=== PATIENT | male | born 1990 | race Caucasian/White ===

== ENCOUNTER 2021-03-15 08:16 | Emergency (ER) | payer OTHER ==
[2021-03-15 09:16] LABS: BASOPHIL 0.2 % (0-2); EOSINOPHIL 0.3 % (0-5); HGB 15.4 g/dl (13.2-18.0); LYMPHOCYTE 5.3 % (15-48); MCH 29.4 pg (25.0-31.0); MCHC 32.8 g/dL (32.0-36.0); MCV 89.9 fL (78.0-100.0); MONOCYTE 6.6 % (0-12); MPV 10.2 fL (6.0-9.5); NEUTROPHIL 86.4 % (41-80); NRBC 0; PLT 263 K/uL (150-400); RBC 5.23 M/uL (4.70-6.00); RDW 12.5 % (11.5-14.0); WBC 27.3 K/uL (4.0-10.5)
[2021-03-15 10:05] LABS: ACETAMINOPHEN (TYLENOL) < 2.0 ug/mL (10.0-30.0); ALBUMIN 4.1 g/dL (3.4-5.0); ALKALINE PHOSHATASE 86 U/L (46-116); ALT 333 U/L (16-63); AST 297 U/L (15-37); BILIRUBIN - TOTAL 0.8 mg/dL (0.2-1.0); BUN 21 mg/dL (7-18); BUN/CREAT RATIO (CALC) 16.5 RATIO; CHLORIDE 102 mmol/L (98-107); CO2 (BICARBONATE) 28 mmol/L (21-32); CREATININE 1.27 mg/dL (0.67-1.17); GLOBULIN (CALCULATION) 3.9 g/dL
[2021-03-15 10:07] LABS: GLUCOSE 36 mg/dL (74-106)
[2021-03-15 11:14] LABS: BILIRUBIN NEGATIVE (NEGATIVE); BLOOD TRACE-INTACT Ery/uL (NEGATIVE); CLARITY CLEAR (CLEAR); COLOR YELLOW (YELLOW); GLUCOSE (U) 1+ mg/dL (NORMAL); LEUKOCYTES NEGATIVE Leu/uL (NEGATIVE); NITRITE NEGATIVE (NEGATIVE); PROTEIN TRACE (LOW) mg/dL (NEGATIVE); SPECIFIC GRAVITY >=1.030 (1.001-1.030); UROBILINOGEN 0.2 mg/dL (0.2-1.0)
[2021-03-15 11:18] LABS: AMPHETAMINES NEGATIVE (NEGATIVE); BARBITURATES NEGATIVE (NEGATIVE); ECSTASY (MDMA) NEGATIVE (NEGATIVE); MARIJUANA (THC) NEGATIVE (NEGATIVE); METHADONE NEGATIVE (NEGATIVE); OPIATES NEGATIVE (NEGATIVE); OXYCODONE NEGATIVE (NEGATIVE)
[2021-03-15 11:20] LABS: BACTERIA 2+
[2021-03-15 11:21] LABS: SQUAMOUS EPITHELIAL CELLS RARE
[2021-03-15 12:49] LABS: LACTIC ACID 3.9 mmol/L (0.4-1.9)
== END 2021-03-15 21:08 | disposition other institution (70) ==
LOC: FER 08:16
PROVIDERS: Emergency Medicine
DX: A41.9 Sepsis, unspecified organism (principal); T40.1X1A Poisoning by heroin, accidental (unintentional), initial encounter; E16.2 Hypoglycemia, unspecified; F11.10 Opioid abuse, uncomplicated; F17.200 Nicotine dependence, unspecified, uncomplicated
CPT/HCPCS: 36415; 71045; 71250; 80053; 80305; 81001; 83605; 84484; 85025; 87040; 93005; G0480; J2060; J2405; J2543; J2704; J3370; J7030; J7050; U0002